=== PATIENT | male | born 1990 | race Caucasian/White ===

== ENCOUNTER 2017-11-15 18:28 | Emergency (ER) | payer OTHER | END 2017-11-15 21:41 | disposition home or self-care (01) | LOC: FTE 18:28 | DX: J32.9 Chronic sinusitis, unspecified (principal); F17.210 Nicotine dependence, cigarettes, uncomplicated | CPT/HCPCS: 99284; Z7502 ==

== ENCOUNTER 2018-06-22 18:24 | Emergency (ER) | payer OTHER | END 2018-06-22 20:03 | disposition home or self-care (01) | LOC: FTE 18:24 | DX: R07.89 Other chest pain (principal) | CPT/HCPCS: 71045; 93005; 99284-25 ==

== ENCOUNTER 2018-09-06 16:54 | Emergency (ER) | payer OTHER | END 2018-09-06 17:48 | disposition home or self-care (01) | LOC: FTE 16:54 | DX: J02.9 Acute pharyngitis, unspecified (principal) | CPT/HCPCS: 99282; Z7502 ==

== ENCOUNTER 2019-03-10 19:49 | Emergency (ER) | payer SELFPAY, OTHER | END 2019-03-10 20:51 | disposition home or self-care (01) | LOC: E/R 19:49 | DX: J32.9 Chronic sinusitis, unspecified (principal) | CPT/HCPCS: 99283 ==